=== PATIENT | male | born 1990 | race Caucasian/White ===

== ENCOUNTER 2017-11-11 17:05 | Emergency (ER) | payer OTHER ==
[2017-11-11 17:30] VITALS: BP 119/79; PULSE 91; RESP 18; TEMP 97.9; O2SAT 97
[2017-11-11] MEDS ORDERED: Lidocaine 2% Inj (20ml) INFIL STA (17:55)
[2017-11-11] MEDS ORDERED: Tetanus/Diphtheria Toxoids 0.5 ml Syringe IM ONE (17:55)
[2017-11-11] MEDS ORDERED: Bacitracin 500 Units/gm Oint Foilpak UD TOP STA (17:56)
[2017-11-11] MEDS ORDERED: Bacitracin 500 Units/gm Oint Foilpak UD ONE (18:09)
[2017-11-11] MEDS ORDERED: Lidocaine 2% MPF (5 ml) Inj ONE (18:10)
[2017-11-11] MEDS ORDERED: Tdap Vaccine 0.5 ml Vial (10-64 yrs) IM ONE (18:10)
--- NOTE | 2017-11-11 18:24 | RAD ---
Date of service: 11/11/2017 PROCEDURE: Left middle finger radiographs. HISTORY: injury COMPARISON: None. TECHNIQUE: AP radiograph of the left hand, as well as spot oblique and lateral images of left middle finger were obtained. FINDINGS: LEFT MIDDLE FINGER: Acute fracture at the distal phalanx of the left middle finger Remainder of the left hand (as seen on the AP view) is grossly unremarkable. JOINTS: Normal. SOFT TISSUES: Normal. OTHER FINDINGS: None. IMPRESSION: Acute comminuted fracture at the distal phalanx of the left middle finger
[2017-11-11] MEDS ORDERED: ceFAZolin IV 1 gm in Dextrose 1 GM/50 ML BAG IVPB STA (18:36)
--- NOTE | 2017-11-11 20:23 | C.PDOC ---
History Of Present Illness 27 year old male presents to the ED for an evaluation of laceration to left middle finger sustained while he was working in the yard and piece of concrete fell on finger. Patient denies any weakness, numbness, or tingling. Patient denies any other injuries/trauma. Time Seen by Provider: 11/11/17 17:43 Chief Complaint (Nursing): Abnormal Skin Integrity History Per: Patient History/Exam Limitations: no limitations Onset/Duration Of Symptoms: Hrs Current Symptoms Are (Timing): Still Present Location Of Injury: Left: Hand (Laceration to left middle finger ) Past Medical History Reviewed: Historical Data, Nursing Documentation, Vital Signs Vital Signs: Last Vital Signs Temp 97.9 F 11/11/17 17:15 Pulse 91 H 11/11/17 17:15 Resp 18 11/11/17 17:15 BP 119/79 11/11/17 17:15 Pulse Ox 97 11/11/17 21:22 - Medical History PMH: No Chronic Diseases Other Surgeries: Hx of surgeries Family History: States: No Known Family Hx - Social History Hx Alcohol Use: No Hx Substance Use: No - Immunization History Hx Tetanus Toxoid Vaccination: No Hx Influenza Vaccination: No Hx Pneumococcal Vaccination: No Review Of Systems Except As Marked, All Systems Reviewed And Found Negative. Skin: Positive for: Other (Laceration to left middle finger) Neurological: Negative for: Weakness, Numbness Physical Exam - Physical Exam Appears: Non-toxic, No Acute Distress Skin: Warm, Dry, Other (1.5cm laceration to palmar surface of distal phalanx of left 3rd digit, no active bleeding, 75% subungual hematoma ) Head: Atraumatic, Normacephalic Eye(s): bilateral: Normal Inspection Nose: Normal Oral Mucosa: Moist Neck: Normal ROM, Supple Chest: Symmetrical Extremity: Normal ROM Pulses: Left Radial: Normal, Right Radial: Normal Neurological/Psych: Oriented x3, Normal Speech, Normal Motor, Normal Sensation, Normal Reflexes Gait: Steady ED Course And Treatment O2 Sat by Pulse Oximetry: 97 (RA) Pulse Ox Interpretation: Normal Progress Note: Tetanus vaccination administered by RN. Laceration of 1.5cm to distal phalax of palmar suface of left middle finger repaired. Patient tolerated procedure well. Nail trephination of 75% fingernail subungual hematoma performed. Patient tolerated procedure well. Finger splint applied by CP. Patient instructed to follow up within 2-3 days and advised to return to ED if feel worse. Patient given Rx for Keflex and Ultram. Laceration - Laceration Repair Distal phalanx of left middle finger Wound Length (In cm): 1.5cm Description Of Wound: Linear Wound Cleansed With: Betadine, Sterile Saline Anesthesia: Lidocaine 2% Wound Examination: Irrigated With Saline, No FB With Wound Exploration, No Tendon Injury With Wound Exploration Wound Closure: Suture (4) Suture Technique And Material Used: Interrupted, Nylon (4-0) Wound Complexity: Simple Disposition - Disposition Referrals: Jonathan Rivas MD [Staff Provider] - Disposition: HOME/ ROUTINE Disposition Time: 20:22 Condition: STABLE Additional Instructions: Follow up within 2-3 days. Return to ED if feel worse. Prescriptions: Cephalexin [Keflex] 500 mg PO Q6 #28 cap traMADol [Ultram] 50 mg PO Q6 #20 tab Instructions: Laceration Repair With Stitches (DC), Finger Fracture (DC), Common Finger Injuries (DC) Forms: [employer] ([place]i) - Clinical Impression Clinical Impression: Finger fracture, Laceration of finger, Subungual hematoma - PA / [employer] DOG TRACK / Resident Statement MD/DO has reviewed & agrees with the documentation as recorded. - Scribe Statement The provider has reviewed the documentation as recorded by the Glenibkym Matthews All medical record entries made by the Glenibkym were at my direction and personally dictated by me. I have reviewed the chart and agree that the record accurately reflects my personal performance of the history, physical exam, medical decision making, and the department course for this patient. I have also personally directed, reviewed, and agree with the discharge instructions and disposition.
== END 2017-11-11 20:39 | disposition home or self-care (01) ==
LOC: C.ER 17:05
DX: S61.313A Laceration without foreign body of left middle finger with damage to nail, initial encounter (principal); S62.633A Displaced fracture of distal phalanx of left middle finger, initial encounter for closed fracture; S60.132A Contusion of left middle finger with damage to nail, initial encounter; W22.8XXA Striking against or struck by other objects, initial encounter; Y92.096 Garden or yard of other non-institutional residence as the place of occurrence of the external cause
CPT/HCPCS: 11740; 12001; 73140; 90471; 90714; 96365; 99283; J0690